=== PATIENT | male | born 1950 | race Caucasian/White ===

== ENCOUNTER 2016-12-20 18:29 | Inpatient (IN) | payer MEDICARE, OTHER ==
--- NOTE | 2016-12-20 19:40 | EDM.PDOC ---
ED HPI GENERAL MEDICAL PROBLEM - General Chief Complaint: Abdominal Pain Stated Complaint: ABD PAIN Time Seen by Provider: 12/20/16 19:20 Source of Information: Reports: Patient History Limitations: Reports: No Limitations - History of Present Illness INITIAL COMMENTS - FREE TEXT/NARRATIVE: Carlyle presents today with complaints of aching abdominal pain that starts at the pubis and radiates across entire lower abdomen. He reports taking miralax with minimal results. He denies ribbon like, or small round stools. He denies fevers or chills. Carlyle states this pain is not similar to the pain he has had in the past with kidney stones. Onset: Today, Sudden Onset Date: 12/20/16 Duration: Hour(s): Quality: Reports: Ache Severity: Moderate Improves with: Reports: None Worsens with: Reports: Movement Lower Abdominal Pain Score (Numeric/FACES): 6 - Related Data Allergies Allergy/AdvReac Type Severity Reaction Status Date / Time No Known Allergies Allergy Verified 12/20/16 19:01 Home Meds: Home Meds Allopurinol [Zyloprim] 300 mg PO DAILY 06/12/13 [History] Gemfibrozil [Gemfibrozil] 600 mg PO DAILY 12/20/16 [History] Past Medical History HEENT History: Reports: Cataract, Impaired Vision Cardiovascular History: Reports: Heart Murmur, High Cholesterol Genitourinary History: Reports: Renal Calculus Musculoskeletal History: Reports: Fracture - Past Surgical History HEENT Surgical History: Reports: Oral Surgery Male Surgical History: Reports: Renal Calculus, Other (See Below) Other Male Surgeries/Procedures: renal stent Social & Family History - Tobacco Use Smoking Status *Q: Never Smoker Second Hand Smoke Exposure: No - Caffeine Use Caffeine Use: Reports: Soda - Alcohol Use Days Per Week of Alcohol Use: 0 - Recreational Drug Use Recreational Drug Use: No ED ROS GENERAL - Review of Systems Review Of Systems: See Below Constitutional: Denies: Fever, Chills, Malaise, Weight Gain HEENT: Reports: No Symptoms Respiratory: Denies: Shortness of Breath, Wheezing, Pleuritic Chest Pain, Cough , Sputum, Hemoptysis Cardiovascular: Denies: Chest Pain, Blood Pressure Problem, Dyspnea on Exertion , Edema, Lightheadedness, Palpitations, PND, Syncope Endocrine: Reports: No Symptoms GI/Abdominal: Reports: Abdominal Pain, Constipation, Flatus, Other (Last colonoscopy 5 years ago, he reports no concerns. ). Denies: Anorexia, Black Stool, Bloody Stool, Diarrhea, Hematemesis, Hematochezia, Nausea, Vomiting : Reports: Pain, Other (Pain over pubis, he reports no hisory of abnormal PSA. ). Denies: Discharge, Dysuria, Flank Pain, Frequency, Incontinence, Urgency, Urinary Retention Musculoskeletal: Reports: No Symptoms Skin: Denies: Diaphoresis, Bruising, Pruritis, Rash, Erythema, Wound, Lesions Neurological: Denies: Confusion, Dizziness, Headache Psychiatric: Reports: No Symptoms Hematologic/Lymphatic: Reports: No Symptoms Immunologic: Reports: No Symptoms ED EXAM, GI/ABD - Physical Exam Exam: See Below Text/Narrative:: Carlyle is a 66 year old male with complaints of low pubic pain radiating across entire lower abdomen. He denies bilateral flank pain or back pain. He denies pain or difficulty with urination as well as fever or chills. Exam Limited By: No Limitations General Appearance: Alert, WD/WN, No Apparent Distress Eyes: Bilateral: Normal Appearance, EOMI Ears: Normal External Exam, Normal TMs Nose: Normal Inspection, Normal Mucosa, No Blood Throat/Mouth: Normal Inspection, Normal Lips, Normal Oropharynx, Normal Voice, No Airway Compromise Head: Atraumatic, Normocephalic Neck: Normal Inspection, Supple, Non-Tender, Full Range of Motion. No: Lymphadenopathy (R), Lymphadenopathy (L) Respiratory/Chest: No Respiratory Distress, Lungs Clear, Normal Breath Sounds, No Accessory Muscle Use, Chest Non-Tender Cardiovascular: Normal Peripheral Pulses, Regular Rate, Rhythm, No Edema, No Gallop, No Murmur GI/Abdominal: Hypoactive Bowel Sounds, Tenderness, Distention, Guarding, Other ( Difficult to assess/palpate abdomen due to patient sensitivity and guarding. ) (Male) Exam: No Hernia, Normal Inspection Back Exam: Normal Inspection, Full Range of Motion. No: CVA Tenderness (R), CVA Tenderness (L) Extremities: Normal Inspection, Normal Range of Motion, Non-Tender, No Pedal Edema, Normal Capillary Refill Neurological: Alert, Oriented, CN II-XII Intact, Normal Cognition, Normal Gait, No Motor/Sensory Deficits Psychiatric: Normal Affect, Normal Mood Skin Exam: Warm, Dry, Intact, Normal Color, No Rash Lymphatic: No Adenopathy Course - Vital Signs Last Recorded V/S: Last Vital Signs Temp 37.4 C 12/20/16 21:15 Pulse 70 12/20/16 23:40 Resp 16 12/20/16 23:40 BP 141/89 H 12/20/16 23:40 Pulse Ox 95 12/20/16 23:40 - Orders/Labs/Meds Orders: Active Orders 24 hr Category Date Time Status Admission Status [Patient Status] [ADT] Routine ADT 12/20/16 23:38 Active Abdomen Pelvis w Cont [CT] Stat Exams 12/20/16 20:30 Taken HELICOBACTER PYLORI AG, STOOL [REF] Urgent Lab 12/20/16 22:42 Uncollected Iopamidol [Isovue-300 (61%)] Med 12/20/16 21:00 Active 146 ml IV . DIRECTED Sodium Chloride 0.9% [Normal Saline] 80 ml Med 12/20/16 21:00 Active IV ASDIRECTED Sodium Chloride 0.9% [Saline Flush] Med 12/20/16 20:32 Active 10 ml FLUSH ASDIRECTED PRN Sodium Chloride 0.9% [Saline Flush] Med 12/20/16 20:53 Active 10 ml FLUSH ASDIRECTED PRN Saline Lock Insert [OM.PC] Routine Oth 12/20/16 20:32 Ordered Medication Orders Sodium Chloride (Normal Saline) 80 mls @ 3 mls/sec IV ASDIRECTED SONY Last Admin: 12/20/16 21:46 Dose: 3 mls/sec Iopamidol (Isovue-300 (61%)) 146 ml IV . DIRECTED SONY Last Admin: 12/20/16 21:46 Dose: 146 ml Sodium Chloride (Saline Flush) 10 ml FLUSH ASDIRECTED PRN PRN Reason: Keep Vein Open Last Admin: 12/20/16 21:46 Dose: 10 ml Admin: 12/20/16 21:14 Dose: 10 ml Sodium Chloride (Saline Flush) 10 ml FLUSH ASDIRECTED PRN PRN Reason: Keep Vein Open Labs: Laboratory Tests 12/20/16 12/20/16 12/20/16 Range/Units 19:45 19:45 20:09 WBC 13.0 H (4.5-11.0) K/uL RBC 5.32 (4.30-5.90) M/uL Hgb 15.4 H (12.0-15.0) g/dL Hct 45.7 (40.0-54.0) % MCV 86 (80-98) fL MCH 29 (27-31) pg MCHC 34 (32-36) % Plt Count 203 (150-400) K/uL Neut % (Auto) 80 H (36-66) % Lymph % (Auto) 11 L (24-44) % [place] % (Auto) 8 H (2-6) % Eos % (Auto) 1 L (2-4) % Baso % (Auto) 0 (0-1) % Sodium 138 L (140-148) mmol/L Potassium 3.7 (3.6-5.2) mmol/L Chloride 102 (100-108) mmol/L Carbon Dioxide 26 (21-32) mmol/L Anion Gap 13.7 (5.0-14.0) mmol/L BUN 14 (7-18) mg/dL Creatinine 1.4 H (0.8-1.3) mg/dL Est Cr Clr Drug Dosing 50.21 mL/min Estimated GFR (MDRD) 51 L (>60) Glucose 117 H (74-106) mg/dL Calcium 8.6 (8.5-10.1) mg/dL Total Bilirubin 0.6 (0.2-1.0) mg/dL AST 22 (15-37) U/L ALT 20 (12-78) U/L Alkaline Phosphatase 77 (46-116) U/L C-Reactive Protein (0.0-0.3) mg/dL Total Protein 8.2 (6.4-8.2) g/dL Albumin 3.6 (3.4-5.0) g/dL Globulin 4.6 H (2.3-3.5) g/dL Albumin/Globulin Ratio 0.8 L (1.2-2.2) Amylase (25-115) U/L Lipase (73-393) U/L TSH, Ultra Sensitive 0.997 (0.358-3.740) uIU/mL Urine Color Yellow Urine Appearance Clear Urine pH 5.0 (4.5-8.0) Ur Specific [place] 1.020 (1.008-1.030) Urine Protein Negative (NEGATIVE) mg/dL Urine Glucose (UA) Normal (NEGATIVE) mg/dL Urine Ketones Negative (NEGATIVE) mg/dL Urine Occult Blood Negative (NEGATIVE) Urine Nitrite Negative (NEGAITVE) Urine Bilirubin Negative (NEGATIVE) Urine Urobilinogen Normal (NORMAL) mg/dL Ur Leukocyte Esterase Negative (NEGATIVE) Urine RBC 0-5 (0-5) Urine WBC Not seen (0-5) Ur Epithelial Cells Rare Amorphous Sediment Not seen Urine Bacteria Few Urine Mucus Few 12/20/16 12/20/16 Range/Units 22:00 22:00 WBC (4.5-11.0) K/uL RBC (4.30-5.90) M/uL Hgb (12.0-15.0) g/dL Hct (40.0-54.0) % MCV (80-98) fL MCH (27-31) pg MCHC (32-36) % Plt Count (150-400) K/uL Neut % (Auto) (36-66) % Lymph % (Auto) (24-44) % [place] % (Auto) (2-6) % Eos % (Auto) (2-4) % Baso % (Auto) (0-1) % Sodium (140-148) mmol/L Potassium (3.6-5.2) mmol/L Chloride (100-108) mmol/L Carbon Dioxide (21-32) mmol/L Anion Gap (5.0-14.0) mmol/L BUN (7-18) mg/dL Creatinine (0.8-1.3) mg/dL Est Cr Clr Drug Dosing mL/min Estimated GFR (MDRD) (>60) Glucose (74-106) mg/dL Calcium (8.5-10.1) mg/dL Total Bilirubin (0.2-1.0) mg/dL AST (15-37) U/L ALT (12-78) U/L Alkaline Phosphatase (46-116) U/L C-Reactive Protein 1.99 H (0.0-0.3) mg/dL Total Protein (6.4-8.2) g/dL Albumin (3.4-5.0) g/dL Globulin (2.3-3.5) g/dL Albumin/Globulin Ratio (1.2-2.2) Amylase 355 H (25-115) U/L Lipase 2695 H (73-393) U/L TSH, Ultra Sensitive (0.358-3.740) uIU/mL Urine Color Urine Appearance Urine pH (4.5-8.0) Ur Specific [place] (1.008-1.030) Urine Protein (NEGATIVE) mg/dL Urine Glucose (UA) (NEGATIVE) mg/dL Urine Ketones (NEGATIVE) mg/dL Urine Occult Blood (NEGATIVE) Urine Nitrite (NEGAITVE) Urine Bilirubin (NEGATIVE) Urine Urobilinogen (NORMAL) mg/dL Ur Leukocyte Esterase (NEGATIVE) Urine RBC (0-5) Urine WBC (0-5) Ur Epithelial Cells Amorphous Sediment Urine Bacteria Urine Mucus Lab work reviewed with Dr. Lu, patient and his , all questions answered. They are in agreement with plan. Meds: Medications Generic Name Dose Route Start Last Admin Trade Name Freq PRN Reason Stop Dose Admin Sodium Chloride 80 mls @ 3 mls/sec 12/20/16 21:00 12/20/16 21:46 Normal Saline IV 3 mls/sec ASDIRECTED SONY Administration Iopamidol 146 ml 12/20/16 21:00 12/20/16 21:46 Isovue-300 (61%) IV 146 ml . DIRECTED SONY Administration Sodium Chloride 10 ml 12/20/16 20:32 12/20/16 21:46 Saline Flush FLUSH 10 ml ASDIRECTED PRN Administration Keep Vein Open Sodium Chloride 10 ml 12/20/16 20:53 Saline Flush FLUSH ASDIRECTED PRN Keep Vein Open Discontinued Medications Generic Name Dose Route Start Last Admin Trade Name Freq PRN Reason Stop Dose Admin Hydromorphone HCl 0.5 mg 12/20/16 21:23 12/20/16 21:36 Dilaudid IVPUSH 12/20/16 21:24 0.5 mg ONETIME ONE Administration Hydromorphone HCl 0.5 mg 12/20/16 22:54 12/20/16 23:04 Dilaudid IVPUSH 12/20/16 22:55 0.5 mg ONETIME ONE Administration Hydromorphone HCl 0.5 mg 12/20/16 23:26 12/20/16 23:36 Dilaudid IVPUSH 12/20/16 23:27 0.5 mg ONETIME ONE Administration Sodium Chloride 1,000 mls @ 999 mls/hr 12/20/16 21:23 12/20/16 21:33 Normal Saline IV 12/20/16 22:23 999 mls/hr .BOLUS ONE Administration Sodium Chloride 1,000 mls @ 999 mls/hr 12/20/16 22:55 12/20/16 23:02 Normal Saline IV 12/20/16 23:55 999 mls/hr .BOLUS ONE Administration Ondansetron HCl 4 mg 12/20/16 21:23 12/20/16 21:34 Zofran IVPUSH 12/20/16 21:24 4 mg ONETIME ONE Administration - Re-Assessments/Exams Free Text/Narrative Re-Assessment/Exam: 12/20/16 20:37 Reviewed lab work with patient. We will complete a CT abdomen/pelvis with contrast. 12/20/16 20:38 Patient reports he has a history of renal growth to his left kidney. 12/20/16 23:36 Patient case discussed with Dr. Lu and Dr. Antonio, he will be admitted for pain control, fluid management, pancreatitis, duodenitis. Departure - Departure Time of Disposition: 00:02 Disposition: Admitted As Inpatient 66 Condition: Fair Clinical Impression: Pancreatitis, Duodenitis - Discharge Information Forms: ED Department Discharge - My Orders Last 24 Hours: My Active Orders 12/20/16 20:30 Abdomen Pelvis w Cont [CT] Stat 12/20/16 20:32 Sodium Chloride 0.9% [Saline Flush] 10 ml FLUSH ASDIRECTED PRN Saline Lock Insert [OM.PC] Routine 12/20/16 20:53 Sodium Chloride 0.9% [Saline Flush] 10 ml FLUSH ASDIRECTED PRN 12/20/16 21:00 Iopamidol [Isovue-300 (61%)] 146 ml IV . DIRECTED Sodium Chloride 0.9% [Normal Saline] 80 ml IV ASDIRECTED 12/20/16 22:42 HELICOBACTER PYLORI AG, STOOL [REF] Urgent 12/20/16 23:38 Admission Status [Patient Status] [ADT] Routine - Assessment/Plan Last 24 Hours: My Active Orders 12/20/16 20:30 Abdomen Pelvis w Cont [CT] Stat 12/20/16 20:32 Sodium Chloride 0.9% [Saline Flush] 10 ml FLUSH ASDIRECTED PRN Saline Lock Insert [OM.PC] Routine 12/20/16 20:53 Sodium Chloride 0.9% [Saline Flush] 10 ml FLUSH ASDIRECTED PRN 12/20/16 21:00 Iopamidol [Isovue-300 (61%)] 146 ml IV . DIRECTED Sodium Chloride 0.9% [Normal Saline] 80 ml IV ASDIRECTED 12/20/16 22:42 HELICOBACTER PYLORI AG, STOOL [REF] Urgent 12/20/16 23:38 Admission Status [Patient Status] [ADT] Routine Assessment:: Acute Pancreatitis, duodenitis. Plan: Admit as observation for pain control and hydration on clear liquid diet.
[2016-12-20] MEDS ORDERED: Sodium Chloride 0.9% 10 ML Syringe FLUSH PRN (20:53)
[2016-12-20] MEDS ORDERED: Sodium Chloride 0.9% 80 ML IV SCH (21:00)
[2016-12-20] MEDS ORDERED: Iopamidol 612 MG/ML 150 ML Bottle IV SCH (21:00)
[2016-12-20] MEDS: Sodium Chloride 0.9% 10 ML Syringe FLUSH PRN ×2 (21:14→21:46)
[2016-12-20] MEDS ORDERED: Sodium Chloride 0.9% 1,000 ML IV ONE ×2 (21:23→22:55)
[2016-12-20] MEDS ORDERED: HYDROmorphone 0.5 MG/0.5 ML Syringe IVPUSH ONE ×3 (21:23→23:26)
[2016-12-20] MEDS ORDERED: Ondansetron 4 MG/2 ML SDV IVPUSH ONE (21:23)
[2016-12-21] MEDS ORDERED: Acetaminophen 325 MG Tab PO PRN (00:52)
[2016-12-21] MEDS ORDERED: Docusate Sodium 100 MG Cap PO PRN (00:54)
[2016-12-21] MEDS ORDERED: Magnesium Hydroxide 400 MG/5 ML Susp 30 ML Cup PO PRN (00:54)
[2016-12-21] MEDS ORDERED: Bisacodyl 10 MG Supp RECTAL PRN (00:55)
[2016-12-21] MEDS ORDERED: Ondansetron 4 MG/2 ML SDV IVPUSH PRN (00:56)
[2016-12-21] MEDS ORDERED: Naloxone 0.4 MG/ML SDV IVPUSH PRN (00:58)
[2016-12-21] MEDS ORDERED: HYDROmorphone/Normal Saline 15 MG/30 ML PCA IV PRN (00:58)
[2016-12-21] MEDS: Dextrose 5%-Lactated Ringers 1,000 ML IV SCH ×3 (01:55→13:13)
[2016-12-21] MEDS: Pantoprazole 40 MG Vial IV SCH (08:30)
[2016-12-21] MEDS ORDERED: Propofol 200 MG/20 ML SDV ONE (09:17)
[2016-12-21] MEDS ORDERED: Midazolam 1 MG/ML 2 ML SDV ONE (09:18)
[2016-12-21] MEDS ORDERED: fentaNYL 100 MCG/2 ML SDV ONE (09:18)
--- NOTE | 2016-12-21 09:46 | US ---
Abdomen Ltd INDICATION: r/o gallstones FINDINGS: Normal hepatic echotexture. No intra- or extrahepatic bile duct dilatation. The gallbladde r is normal. Negative sonographic Toth sign. Aorta and IVC are normal where visualized. Pancreas i s not well seen. Survey views of the right kidney are negative for hydronephrosis. IMPRESSION: Negative right upper quadrant ultrasound.
--- NOTE | 2016-12-21 14:31 | PCM.CONS ---
H&P History of Present Illness - General Date of Service: 12/21/16 Admit Problem/Dx: Admission Diagnosis/Problem Admission Diagnosis/Problem Acute pancreatitis Source of Information: Patient, RN Notes Reviewed History Limitations: Reports: No Limitations - History of Present Illness Initial Comments - Free Text/Narative: This patient is a 66-year-old gentleman who was admitted last night with abdominal pain secondary to pancreatitis. He's had no previous episodes of pancreatitis and denies significant alcohol intake. Evaluation thus far has been unremarkable as to the underlying etiology. Abdominal ultrasound showed no evidence of gallstones or biliary obstruction. He's been seen and evaluated by Dr. Antonio EGD performed today showed mild gastritis but no other significant abnormalities. His pain has improved significantly and lipase is improved mildly from admission. He was started on a clear liquid diet which he has tolerated without recurrence of symptoms. Lower Abdominal Pain Score (Numeric/FACES): 1 - Related Data Allergies/Adverse Reactions: Allergies Allergy/AdvReac Type Severity Reaction Status Date / Time No Known Allergies Allergy Verified 12/20/16 19:01 Home Medications: Home Meds Allopurinol [Zyloprim] 300 mg PO DAILY 06/12/13 [History] Gemfibrozil [Gemfibrozil] 600 mg PO DAILY 12/20/16 [History] Past Medical History HEENT History: Reports: Cataract, Impaired Vision Cardiovascular History: Reports: Heart Murmur, High Cholesterol Genitourinary History: Reports: Renal Calculus Musculoskeletal History: Reports: Fracture - Infectious Disease History Infectious Disease History: Reports: Chicken Pox, Measles - Past Surgical History HEENT Surgical History: Reports: Oral Surgery Male Surgical History: Reports: Renal Calculus, Other (See Below) Other Male Surgeries/Procedures: renal stent Social & Family History - Family History Family Medical History: Noncontributory - Tobacco Use Smoking Status *Q: Never Smoker Second Hand Smoke Exposure: No - Caffeine Use Caffeine Use: Reports: Soda - Alcohol Use Days Per Week of Alcohol Use: 1 Number of Drinks Per Day: 0 Total Drinks Per Week: 0 Date of Last Drink: 11/28/16 Time of Last Drink: 17:00 - Recreational Drug Use Recreational Drug Use: No H&P Review of Systems - Review of Systems: Review Of Systems: See Below General: Denies: Fever, Chills, Weakness Pulmonary: Reports: No Symptoms Cardiovascular: Reports: No Symptoms Gastrointestinal: Reports: Abdominal Pain, Decreased Appetite, Distension. Denies: Constipation, Diarrhea, Nausea, Vomiting Genitourinary: Reports: No Symptoms Musculoskeletal: Reports: No Symptoms Exam - Exam Exam: See Below - Vital Signs Vital Signs: Last Vital Signs Temp 100.1 F 12/21/16 13:06 Pulse 65 12/21/16 13:06 Resp 18 12/21/16 13:06 BP 124/76 12/21/16 13:06 Pulse Ox 91 L 12/21/16 14:22 Weight: 214 lb 14.4 oz - Exam Neck: Supple, Trachea Midline, +2 Carotid Pulse wo Bruit Lungs: Clear to Auscultation, Normal Respiratory Effort Cardiovascular: Regular Rate, Regular Rhythm, Normal S1, Normal S2. No: Systolic Murmur, Diastolic Murmur Abdomen: Soft, Distention, Tenderness, Hypoactive Bowel Sounds. No: Organomegaly, Peritoneal Signs, Guarding, Rigidity, Rebound Back Exam: Normal Inspection, Full Range of Motion, NT Extremities: 3, Normal Inspection, 10 Skin: Warm, Dry, Intact - Patient Data Lab Results Last 24 hrs: Laboratory Results - last 24 hr 12/21/16 12/21/16 12/21/16 Range/Units 04:30 04:32 04:32 WBC 10.8 (4.5-11.0) K/uL RBC 4.82 (4.30-5.90) M/uL Hgb 14.3 (12.0-15.0) g/dL Hct 42.4 (40.0-54.0) % MCV 88 (80-98) fL MCH 30 (27-31) pg MCHC 34 (32-36) % Plt Count 164 (150-400) K/uL Sodium 138 L (140-148) mmol/L Potassium 3.9 (3.6-5.2) mmol/L Chloride 104 (100-108) mmol/L Carbon Dioxide 26 (21-32) mmol/L Anion Gap 11.9 (5.0-14.0) mmol/L BUN 11 (7-18) mg/dL Creatinine 1.3 (0.8-1.3) mg/dL Est Cr Clr Drug Dosing 54.08 mL/min Estimated GFR (MDRD) 55 L (>60) Glucose 130 H (74-106) mg/dL Calcium 8.0 L (8.5-10.1) mg/dL Total Bilirubin 0.6 (0.2-1.0) mg/dL AST 19 (15-37) U/L ALT 17 (12-78) U/L Alkaline Phosphatase 69 (46-116) U/L Total Protein 7.3 (6.4-8.2) g/dL Albumin 3.0 L (3.4-5.0) g/dL Globulin 4.3 H (2.3-3.5) g/dL Albumin/Globulin Ratio 0.7 L (1.2-2.2) Triglycerides 125 (15-150) mg/dL Cholesterol 160 (0-200) mg/dL LDL Cholesterol Direct 113 H (0-100) mg/dL HDL Cholesterol 35 L (40-60) mg/dL Amylase 255 H (25-115) U/L Lipase 2060 H (73-393) U/L Result Diagrams: 12/21/16 04:32 12/21/16 04:32 Consult PN Assessment/Plan Procedures: Procedures TTE W/DOPPLER COMPLETE (07/08/14) Problem List Initiated/Reviewed/Updated: Yes My Orders last 24 hours: My Active Orders 12/21/16 14:20 Convert IV to Saline Lock [OM.PC] Routine Plan: ASSESSMENT AND RECOMMENDATIONS PANCREATITIS-specific etiology not apparent, no evidence of obstruction or gallstones, no history of significant alcohol use. Question possible medication effect gemfibrizole versus allopurinol versus idiopathic. -Continue to hold outpatient medications -Saline lock IV -Repeat lipase level in a.m. -Continue Protonix for gastritis noted on EGD -Pain and antiemetic therapy as needed Requesting Provider: ROXANA Date Consult Requested: 12/21/16 Reason for Consult: Pancreatitis Patient History Reviewed: Yes Notified Requestor: Yes
[2016-12-21] MEDS ORDERED: Sodium Chloride 0.9% 1,000 ML IV SCH (14:45)
[2016-12-22] MEDS: Pantoprazole 40 MG Vial IV SCH (09:12)
[2016-12-22] MEDS ORDERED: Magnesium Sulfate/Water 2 GM in Premix Bag 1 BAG IV SCH (14:00)
[2016-12-22] MEDS ORDERED: oxyCODONE 5 MG Tab PO PRN (14:37)
--- NOTE | 2016-12-22 14:43 | PCM.CONSN ---
- General Info Date of Service: 12/22/16 Functional Status: Reports: pain controlled, tolerating diet, ambulating - Review of Systems General: Reports: Weakness. Denies: Fever, Chills Pulmonary: Reports: no symptoms Cardiovascular: Reports: No Symptoms Gastrointestinal: Reports: No symptoms Systems Review Comment:: This patient has done very well over the past 24 hours, abdominal pain has resolved and he is had no further nausea or vomiting. Vital signs have been stable, he did have a mild temperature elevation during the night. Thus far he is tolerated a clear liquid diet and was converted to a full liquid diet this morning. Lipase level and white blood cell count are significantly improved. - Patient Data Vitals - most recent: Last Vital Signs Temp 97.7 F 12/22/16 12:16 Pulse 53 L 12/22/16 12:16 Resp 16 12/22/16 12:16 BP 125/77 12/22/16 12:16 Pulse Ox 93 L 12/22/16 13:07 Weight - most recent: 214 lb 14.4 oz I&O - last 24 hours: Intake & Output 12/21/16 12/22/16 12/22/16 22:59 06:59 14:59 Intake Total 1384 523 410 Output Total 450 700 Balance 934 523 -290 Lab Results last 24 hrs: Laboratory Results - last 24 hr 12/22/16 12/22/16 Range/Units 04:52 04:52 WBC 11.4 H (4.5-11.0) K/uL RBC 4.33 (4.30-5.90) M/uL Hgb 12.8 (12.0-15.0) g/dL Hct 38.6 L (40.0-54.0) % MCV 89 (80-98) fL MCH 30 (27-31) pg MCHC 33 (32-36) % Plt Count 158 (150-400) K/uL Sodium 135 L (140-148) mmol/L Potassium 3.8 (3.6-5.2) mmol/L Chloride 101 (100-108) mmol/L Carbon Dioxide 27 (21-32) mmol/L Anion Gap 10.8 (5.0-14.0) mmol/L BUN 11 (7-18) mg/dL Creatinine 1.3 (0.8-1.3) mg/dL Est Cr Clr Drug Dosing 54.28 mL/min Estimated GFR (MDRD) 55 L (>60) Glucose 89 (74-106) mg/dL Calcium 8.1 L (8.5-10.1) mg/dL Phosphorus 3.2 (2.5-4.9) mg/dL Magnesium 1.7 L (1.8-2.4) mg/dL Total Bilirubin 0.9 (0.2-1.0) mg/dL AST 12 L (15-37) U/L ALT 14 (12-78) U/L Alkaline Phosphatase 62 (46-116) U/L Total Protein 7.1 (6.4-8.2) g/dL Albumin 2.7 L (3.4-5.0) g/dL Globulin 4.4 H (2.3-3.5) g/dL Albumin/Globulin Ratio 0.6 L (1.2-2.2) Amylase 95 D (25-115) U/L Lipase 425 H (73-393) U/L Vasu Results last 24 hrs: Microbiology 12/21/16 09:50 CLOtest - Final Stomach NEGATIVE CLOTEST Med Orders - Current: Current Medications Acetaminophen (Tylenol) 650 mg PO Q4H PRN PRN Reason: Pain/Fever Bisacodyl (Dulcolax) 10 mg RECTAL DAILY PRN PRN Reason: Constipation Docusate Sodium (Colace) 100 mg PO DAILY PRN PRN Reason: Constipation Magnesium Hydroxide (Milk Of Magnesia) 30 ml PO BID PRN PRN Reason: Constipation Naloxone HCl (Narcan) 0.4 mg IVPUSH Q2M PRN PRN Reason: Respiratory Distress Ondansetron HCl (Zofran) 4 mg IVPUSH Q4H PRN PRN Reason: Nausea/Vomiting Oxycodone HCl (Oxycodone) 5 - 10 mg PO Q4H PRN PRN Reason: Pain Pantoprazole Sodium (Protonix) 40 mg PO DAILY [facility] Sodium Chloride (Saline Flush) 10 ml FLUSH ASDIRECTED PRN PRN Reason: Keep Vein Open Discontinued Medications Fentanyl (Sublimaze) Confirm Administered Dose 100 mcg .ROUTE .STK-MED ONE Stop: 12/21/16 09:19 Hydromorphone HCl (Dilaudid) 0.5 mg IVPUSH ONETIME ONE Stop: 12/20/16 21:24 Last Admin: 12/20/16 21:36 Dose: 0.5 mg Hydromorphone HCl (Dilaudid) 0.5 mg IVPUSH ONETIME ONE Stop: 12/20/16 22:55 Last Admin: 12/20/16 23:04 Dose: 0.5 mg Hydromorphone HCl (Dilaudid) 0.5 mg IVPUSH ONETIME ONE Stop: 12/20/16 23:27 Last Admin: 12/20/16 23:36 Dose: 0.5 mg Hydromorphone HCl (Dilaudid Retail Store Manager 15 Mg In Ns 30 Ml) 0 mg IV ASDIRECTED PRN; Protocol PRN Reason: Pain Last Admin: 12/21/16 01:56 Dose: 15 mg Sodium Chloride (Normal Saline) 80 mls @ 3 mls/sec IV ASDIRECTED SONY Last Admin: 12/20/16 21:46 Dose: 3 mls/sec Sodium Chloride (Normal Saline) 1,000 mls @ 999 mls/hr IV .BOLUS ONE Stop: 12/20/16 22:23 Last Admin: 12/20/16 21:33 Dose: 999 mls/hr Sodium Chloride (Normal Saline) 1,000 mls @ 999 mls/hr IV .BOLUS ONE Stop: 12/20/16 23:55 Last Admin: 12/20/16 23:02 Dose: 999 mls/hr Dextrose/Lactated Ringer's (Dextrose 5%-Lactated Ringers) 1,000 mls @ 125 mls/ hr IV ASDIRECTED SONY Last Admin: 12/21/16 13:13 Dose: 125 mls/hr Sodium Chloride (Normal Saline) 1,000 mls @ 0 mls/hr IV ASDIRECTED SONY PRN Reason: KVO Stop: 12/25/16 14:34 Magnesium Sulfate 2 gm/ Premix 50 mls @ 25 mls/hr IV Q6H SONY Stop: 12/25/16 09:59 Last Admin: 12/22/16 14:18 Dose: 25 mls/hr Iopamidol (Isovue-300 (61%)) 146 ml IV . DIRECTED SONY Last Admin: 12/20/16 21:46 Dose: 146 ml Midazolam HCl (Versed 1 Mg/Ml) Confirm Administered Dose 2 mg .ROUTE .STK-MED ONE Stop: 12/21/16 09:19 Ondansetron HCl (Zofran) 4 mg IVPUSH ONETIME ONE Stop: 12/20/16 21:24 Last Admin: 12/20/16 21:34 Dose: 4 mg Pantoprazole Sodium (Protonix Iv) 40 mg IV Q24H SONY Last Admin: 12/22/16 09:12 Dose: 40 mg Propofol (Diprivan 20 Ml) Confirm Administered Dose 200 mg .ROUTE .STK-MED ONE Stop: 12/21/16 09:18 Sodium Chloride (Saline Flush) 10 ml FLUSH ASDIRECTED PRN PRN Reason: Keep Vein Open Last Admin: 12/20/16 21:46 Dose: 10 ml - Exam Quality Assessment: DVT prophylaxis General: alert, oriented, cooperative, no acute distress Lungs: Clear to auscultation, Normal respiratory effort Cardiovascular: Regular Rate, Regular Rhythm, No Murmurs Abdomen: bowel sounds present, soft, no tenderness, no distension Extremities: no edema Skin: warm, dry, intact Consult PN Assessment/Plan Procedures: Procedures TTE W/DOPPLER COMPLETE (07/08/14) Problem List Initiated/Reviewed/Updated: Yes My Orders last 24 hours: My Active Orders 12/22/16 14:36 Convert IV to Saline Lock [OM.PC] Routine 12/22/16 14:37 oxyCODONE 5 - 10 mg PO Q4H PRN 12/22/16 14:40 Magnesium Sulfate/Water [Magnesium Sulfate 2 GM in Water 50 ML] 2 gm Premix Bag 1 bag IV Q6H 12/22/16 Dinner Regular Diet [DIET] 12/23/16 05:00 CBC WITH AUTO DIFF [HEME] Timed MAGNESIUM [CHEM] Timed 12/23/16 09:00 Pantoprazole [ProTONIX] 40 mg PO DAILY Plan: ASSESSMENT AND RECOMMENDATIONS PANCREATITIS-specific etiology not apparent, no evidence of obstruction or gallstones, no history of significant alcohol use. Question possible medication effect gemfibrizole versus allopurinol versus idiopathic. -Continue to hold gemfibrozil -Resume therapy with allopurinol -Advance to regular diet -Saline lock IV -Repeat lipase level in a.m. -Continue Protonix for gastritis noted on EGD -Pain and antiemetic therapy as needed
[2016-12-22] MEDS: Allopurinol 300 MG Tab PO SCH (16:11)
--- NOTE | 2016-12-22 17:43 | PCM.CONSN ---
- General Info Date of Service: 12/22/16 Functional Status: Reports: pain controlled, tolerating diet - Review of Systems General: Reports: Weakness, Fatigue HEENT: Reports: no symptoms Pulmonary: Reports: no symptoms Cardiovascular: Reports: No Symptoms Gastrointestinal: Reports: Abdominal pain (improved) Genitourinary: Reports: no symptoms Musculoskeletal: Reports: no symptoms Skin: Reports: no symptoms Neurological: Reports: No Symptoms Psychiatric: Reports: no symptoms - Patient Data Vitals - most recent: Last Vital Signs Temp 97.9 F 12/22/16 16:45 Pulse 61 12/22/16 16:45 Resp 18 12/22/16 16:45 BP 139/65 12/22/16 16:45 Pulse Ox 95 12/22/16 16:45 Weight - most recent: 214 lb 14.4 oz I&O - last 24 hours: Intake & Output 12/22/16 12/22/16 12/22/16 06:59 14:59 22:59 Intake Total 523 410 118 Output Total 700 Balance 523 -290 118 Lab Results last 24 hrs: Laboratory Results - last 24 hr 12/22/16 12/22/16 Range/Units 04:52 04:52 WBC 11.4 H (4.5-11.0) K/uL RBC 4.33 (4.30-5.90) M/uL Hgb 12.8 (12.0-15.0) g/dL Hct 38.6 L (40.0-54.0) % MCV 89 (80-98) fL MCH 30 (27-31) pg MCHC 33 (32-36) % Plt Count 158 (150-400) K/uL Sodium 135 L (140-148) mmol/L Potassium 3.8 (3.6-5.2) mmol/L Chloride 101 (100-108) mmol/L Carbon Dioxide 27 (21-32) mmol/L Anion Gap 10.8 (5.0-14.0) mmol/L BUN 11 (7-18) mg/dL Creatinine 1.3 (0.8-1.3) mg/dL Est Cr Clr Drug Dosing 54.28 mL/min Estimated GFR (MDRD) 55 L (>60) Glucose 89 (74-106) mg/dL Calcium 8.1 L (8.5-10.1) mg/dL Phosphorus 3.2 (2.5-4.9) mg/dL Magnesium 1.7 L (1.8-2.4) mg/dL Total Bilirubin 0.9 (0.2-1.0) mg/dL AST 12 L (15-37) U/L ALT 14 (12-78) U/L Alkaline Phosphatase 62 (46-116) U/L Total Protein 7.1 (6.4-8.2) g/dL Albumin 2.7 L (3.4-5.0) g/dL Globulin 4.4 H (2.3-3.5) g/dL Albumin/Globulin Ratio 0.6 L (1.2-2.2) Amylase 95 D (25-115) U/L Lipase 425 H (73-393) U/L Vasu Results last 24 hrs: Microbiology 12/21/16 09:50 CLOtest - Final Stomach NEGATIVE CLOTEST Med Orders - Current: Current Medications Acetaminophen (Tylenol) 650 mg PO Q4H PRN PRN Reason: Pain/Fever Allopurinol (Zyloprim) 300 mg PO DAILY [facility] Last Admin: 12/22/16 16:11 Dose: 300 mg Bisacodyl (Dulcolax) 10 mg RECTAL DAILY PRN PRN Reason: Constipation Docusate Sodium (Colace) 100 mg PO DAILY PRN PRN Reason: Constipation Magnesium Sulfate 2 gm/ Premix 50 mls @ 25 mls/hr IV ONETIME ONE Stop: 12/22/16 21:59 Magnesium Hydroxide (Milk Of Magnesia) 30 ml PO BID PRN PRN Reason: Constipation Melatonin (Melatonin) 9 mg PO BEDTIME [facility] Naloxone HCl (Narcan) 0.4 mg IVPUSH Q2M PRN PRN Reason: Respiratory Distress Ondansetron HCl (Zofran) 4 mg IVPUSH Q4H PRN PRN Reason: Nausea/Vomiting Oxycodone HCl (Oxycodone) 5 - 10 mg PO Q4H PRN PRN Reason: Pain Pantoprazole Sodium (Protonix) 40 mg PO DAILY@0730 [facility] Sodium Chloride (Saline Flush) 10 ml FLUSH ASDIRECTED PRN PRN Reason: Keep Vein Open Discontinued Medications Fentanyl (Sublimaze) Confirm Administered Dose 100 mcg .ROUTE .STK-MED ONE Stop: 12/21/16 09:19 Hydromorphone HCl (Dilaudid) 0.5 mg IVPUSH ONETIME ONE Stop: 12/20/16 21:24 Last Admin: 12/20/16 21:36 Dose: 0.5 mg Hydromorphone HCl (Dilaudid) 0.5 mg IVPUSH ONETIME ONE Stop: 12/20/16 22:55 Last Admin: 12/20/16 23:04 Dose: 0.5 mg Hydromorphone HCl (Dilaudid) 0.5 mg IVPUSH ONETIME ONE Stop: 12/20/16 23:27 Last Admin: 12/20/16 23:36 Dose: 0.5 mg Hydromorphone HCl (Dilaudid Veterinary Physiologist 15 Mg In Ns 30 Ml) 0 mg IV ASDIRECTED PRN; Protocol PRN Reason: Pain Last Admin: 12/21/16 01:56 Dose: 15 mg Sodium Chloride (Normal Saline) 80 mls @ 3 mls/sec IV ASDIRECTED SONY Last Admin: 12/20/16 21:46 Dose: 3 mls/sec Sodium Chloride (Normal Saline) 1,000 mls @ 999 mls/hr IV .BOLUS ONE Stop: 12/20/16 22:23 Last Admin: 12/20/16 21:33 Dose: 999 mls/hr Sodium Chloride (Normal Saline) 1,000 mls @ 999 mls/hr IV .BOLUS ONE Stop: 12/20/16 23:55 Last Admin: 12/20/16 23:02 Dose: 999 mls/hr Dextrose/Lactated Ringer's (Dextrose 5%-Lactated Ringers) 1,000 mls @ 125 mls/ hr IV ASDIRECTED SONY Last Admin: 12/21/16 13:13 Dose: 125 mls/hr Sodium Chloride (Normal Saline) 1,000 mls @ 0 mls/hr IV ASDIRECTED SONY PRN Reason: KVO Stop: 12/25/16 14:34 Magnesium Sulfate 2 gm/ Premix 50 mls @ 25 mls/hr IV Q6H [facility]ONY Stop: 12/25/16 09:59 Last Admin: 12/22/16 14:18 Dose: 25 mls/hr Iopamidol (Isovue-300 (61%)) 146 ml IV . DIRECTED SONY Last Admin: 12/20/16 21:46 Dose: 146 ml Midazolam HCl (Versed 1 Mg/Ml) Confirm Administered Dose 2 mg .ROUTE .STK-MED ONE Stop: 12/21/16 09:19 Ondansetron HCl (Zofran) 4 mg IVPUSH ONETIME ONE Stop: 12/20/16 21:24 Last Admin: 12/20/16 21:34 Dose: 4 mg Pantoprazole Sodium (Protonix Iv) 40 mg IV Q24H SONY Last Admin: 12/22/16 09:12 Dose: 40 mg Propofol (Diprivan 20 Ml) Confirm Administered Dose 200 mg .ROUTE .STK-MED ONE Stop: 12/21/16 09:18 Sodium Chloride (Saline Flush) 10 ml FLUSH ASDIRECTED PRN PRN Reason: Keep Vein Open Last Admin: 12/20/16 21:46 Dose: 10 ml - Exam Quality Assessment: DVT prophylaxis General: alert, oriented, cooperative, no acute distress HEENT: Pupils equal, Pupils reactive Neck: supple Lungs: Clear to auscultation, Normal respiratory effort Cardiovascular: Regular Rate, Regular Rhythm Abdomen: tenderness (minimal in the upper abdominal quadrants) (Male) Exam: Deferred Back Exam: Normal Inspection, Full Range of Motion Extremities: no edema Consult PN Assessment/Plan POD#: 0 Procedures: Procedures TTE W/DOPPLER COMPLETE (07/08/14) (1) Pancreatitis SNOMED Code(s): 65680060 Code(s): K85.90 - ACUTE PANCREATITIS WITHOUT NECROSIS OR INFECTION, UNSP Current Visit: Yes (2) Duodenitis SNOMED Code(s): 19204438 Code(s): K29.80 - DUODENITIS WITHOUT BLEEDING Current Visit: Yes Problem List Initiated/Reviewed/Updated: Yes My Orders last 24 hours: My Active Orders 12/23/16 04:00 AMYLASE [CHEM] Routine COMPREHENSIVE METABOLIC PN,CMP [CHEM] Timed LIPASE [CHEM] Routine MAGNESIUM [CHEM] Timed PHOSPHORUS [CHEM] Timed Full Liquid Diet Will evaluate prn or in AM Mandi Osborn
[2016-12-22] MEDS ORDERED: Magnesium Sulfate/Water 2 GM in Premix Bag 1 BAG IV ONE (20:00)
[2016-12-22] MEDS ORDERED: Melatonin 3 MG Tab PO SCH (21:00)
[2016-12-23] MEDS ORDERED: Haloperidol Lactate 5 MG/ML SDV IVPUSH STA (02:52)
[2016-12-23] MEDS ORDERED: Haloperidol Lactate 5 MG/ML SDV IVPUSH PRN (02:54)
[2016-12-23] MEDS ORDERED: Pantoprazole 40 MG Tab.CR PO SCH (07:30)
[2016-12-23] MEDS: Allopurinol 300 MG Tab PO SCH (08:26)
--- NOTE | 2016-12-23 08:56 | PN ---
DATE OF SERVICE: 12/21/2016 The patient has been afebrile with stable vital signs overnight. The abdominal pain is relatively minimal, and at this point, we will complete his workup with ultrasound of the abdomen and lipid profile. He does not have history of steroid use or significant alcohol use, and his calcium is in the low normal range, given his albumin level. The radiologist noted that there was quite a bit of a focus of inflammation in the pancreatic head, suggestive of the possibility that this is related to duodenal inflammation/ulcer, and given this, we will proceed with an upper endoscopy today and recheck some labs tomorrow. We will start some Protonix as well as. I have asked Dr. Samuel to see the patient for any additional input. Franc Antonio MD /[id number]
[2016-12-23 08:59] VITALS: BP 139/83
--- NOTE | 2016-12-24 03:35 | DISCH ---
ADMISSION DIAGNOSES: 1. Abdominal pain. 2. Hypercholesterolemia. 3. History of heart murmur. 4. History of renal calculus. 5. Abnormal prostate-specific antigen. DISCHARGE DIAGNOSES: 1. Status post esophagogastroduodenoscopy, 12/21/2016. 2. Idiopathic pancreatitis. HISTORY: Carlyle Ruby was admitted on 12/20/2016 from the emergency department with less than 24-hour history of abdominal pain that started in the lower part of his abdomen and radiated throughout his entire abdomen. At time of admission, his white count was 13. C- reactive protein was 1.99, amylase 355, and lipase 2695. He was admitted for hydration and to work up his pancreatitis. HOSPITAL COURSE: Carlyle was admitted on 12/20/2016. He had an EGD on 12/21/2016, which was nonconclusive. Ultrasound showed no evidence of gallstones or biliary obstruction. He has no history of alcohol intake. Medications were evaluated. Gemfibrozil was discontinued with a question of that causing his pancreatitis. Pain was controlled. His activity was good. At time of discharge, on 12/23/2016, his amylase was 64 and lipase 381. Carlyle will be discharged to home on 12/23/2016 without any complications. On 12/22/2016, he developed hiccups, which did not go away after 24 hours, so he was started on Haldol and this seemed to help with the hiccups. PHYSICAL EXAMINATION: GENERAL: Carlyle Ruby is a 66-year-old male. VITAL SIGNS: Height is 5 feet 8.11 inches, weight 214 pounds. TPR 97.1, 63, 18, and blood pressure 139/83. HEENT: Negative. NECK: Supple. HEART: Regular rate and rhythm. LUNGS: Clear. ABDOMEN: Soft. Very mildly tender. EXTREMITIES: Without peripheral edema. DISPOSITION: Discharged to home. CONDITION: Stable and improving. FOLLOWUP APPOINTMENT: With Rory Gates MD in 1 week for followup. DISCHARGE MEDICATIONS: Medications were to be resumed with addition of Haldol 0.5 mg q.4 hours p.r.n. hiccuping. DIET: Usual diet as tolerated. ACTIVITY: As tolerated. DISCHARGE INSTRUCTIONS: Drink 8 to 10 glasses of water a day. Notify provider if any fever, increased pain, nausea, or vomiting.
--- NOTE | 2016-12-31 17:42 | OR ---
DATE OF PROCEDURE: 12/21/2016 PREOPERATIVE DIAGNOSIS: Upper abdominal pain associated with pancreatitis with adjacent duodenal inflammation. POSTOPERATIVE DIAGNOSIS: Mild antral gastritis (not likely to cause pancreatitis). OPERATIVE PROCEDURE: Esophagogastroduodenoscopy with biopsies of antrum for CLOtest. ANESTHESIA: IV sedation. INDICATION FOR PROCEDURE: This is a 66-year-old male admitted overnight with pancreatitis. As part of the workup, he had underwent CT scan which showed inflammation in the antrum and duodenum suggesting possibility that there might be something like a penetrating ulcer in that area causing pancreatitis. Plan is to proceed with upper GI endoscopy with biopsies as indicated to investigate that issue. Potential risks including bleeding and perforation were discussed, and the patient wishes to proceed. PROCEDURE IN DETAILS: The patient was taken to the operating room and placed in a left lateral decubitus position. IV sedation was administered, after which the upper GI endoscope was passed orally through the length of the esophagus and into the stomach with retroflexion in view of the fundus, thereafter through the pyloric channel and into the proximal duodenum. FINDINGS: Included normal esophagus and EG junction as one passed in the stomach, there was a small amount of retained bile. Proximal stomach was unremarkable. There was quite mild antral gastritis, which was somewhat patchy in distribution and there were no erosions or ulcers seen. Pyloric channel and the duodenum to the junction of the third and fourth portions were showing some very mild duodenitis, but again nothing in terms of ulceration or erosions, but at this point biopsies were obtained from the antrum and sent for CLOtest for H. pylori. Minimal bleeding from the biopsy site was seen and the procedure was then concluded with withdrawal of the scope. Overall findings would not support the inflammation and antrum or duodenum causing the pancreatitis. Franc Antonio MD /[id number]
== END 2016-12-23 11:45 | disposition home or self-care (01) | DRG 440 ==
LOC: JP.ED 18:29 → UNDOADMIN 23:38 → JP.MS 23:38 → UNDODISIN 12-23 11:45
PROVIDERS: ADMIT Surgery; ATTEND Surgery
PROC: 0DB68ZX Excision of Stomach, Via Natural or Artificial Opening Endoscopic, Diagnostic (ICD-10-PCS; principal; 2016-12-21)
DX: K85.00 Idiopathic acute pancreatitis without necrosis or infection (principal); K29.60 Other gastritis without bleeding; K29.80 Duodenitis without bleeding; R10.9 Unspecified abdominal pain; E78.00 Pure hypercholesterolemia, unspecified; H54.7 Unspecified visual loss; R06.6 Hiccough; Z87.442 Personal history of urinary calculi; R97.20 Elevated prostate specific antigen [PSA]
CPT/HCPCS: 36415; 74177; 80053; 81001; 82150; 83690; 84443; 85025; 86140; 96361; 96374; 96375; 96376; 99285; J1170 ×3; J2405; J7030; J7040 ×2; J7050 ×2; 76705; 76705-26; 80061; 83735; 84100; 85027; 87081; 94762; A9270-GY; C9113; J1630; J2250; J2704; J3010; J3475; J7042

== ENCOUNTER 2019-06-09 14:54 | Emergency (ER) | payer MEDICARE, OTHER ==
--- NOTE | 2019-06-09 15:52 | EDM.PDOC ---
ED HPI GENERAL MEDICAL PROBLEM - General Chief Complaint: General Stated Complaint: DIZZY,VISION ISSUES,CLAMMY Time Seen by Provider: 06/09/19 15:30 Source of Information: Reports: Patient, Old Records History Limitations: Reports: No Limitations - History of Present Illness INITIAL COMMENTS - FREE TEXT/NARRATIVE: 68 yo male was walking across a room in his home when he almost passed out. He got light-headed, his vision got dimmer, and he got diaphoretic. He got to the cough and say down before passing out and after several minutes he gradually returned to normal. He did not have any CP or SOB. No nausea. He has not eaten today, but did have a Coke and some juice, and water. No diarrhea or bloody stools. No recent fever. No pleuritic chest pain or LE edema. He has never had this happen before. He was not aware of a rapid, slow, or irregular heart rhythm. No headache. No vertigo. Onset: Today Onset Date: 06/09/19 Duration: Minutes:, Resolved Prior to Arrival (resolved about the time he arrived.) Location: Reports: Head, Generalized Quality: Reports: Other (no reported pain) Severity: Moderate Improves with: Reports: Rest (sitting/lying) Worsens with: Reports: Other (? standing at the time.) Context: Reports: Other (See HPI) Associated Symptoms: Reports: Diaphoresis. Denies: Confusion, Chest Pain, Fever /Chills, Headaches, Nausea/Vomiting, Seizure, Shortness of Breath, Syncope Treatments MANAGER INTEGRITY: Reports: Other (see below) (rest) - Related Data Allergies Allergy/AdvReac Type Severity Reaction Status Date / Time No Known Allergies Allergy Verified 02/18/18 06:14 Home Meds: Home Meds allopurinoL [Zyloprim] 300 mg PO DAILY 06/12/13 [History] Losartan [Cozaar] 50 mg PO DAILY 06/09/19 [History] Rivaroxaban [Xarelto] 20 mg PO DAILY 06/09/19 [History] Past Medical History HEENT History: Reports: Cataract, Impaired Vision Cardiovascular History: Reports: Blood Clots/VTE/DVT, Heart Murmur, High Cholesterol Genitourinary History: Reports: Renal Calculus Musculoskeletal History: Reports: Fracture - Infectious Disease History Infectious Disease History: Reports: Chicken Pox, Measles - Past Surgical History HEENT Surgical History: Reports: Oral Surgery GI Surgical History: Reports: Hernia, Inguinal Male Surgical History: Reports: Renal Calculus, Other (See Below) Other Male Surgeries/Procedures: renal stent Social & Family History - Family History Family Medical History: Noncontributory - Tobacco Use Smoking Status *Q: Never Smoker - Caffeine Use Caffeine Use: Reports: Soda - Recreational Drug Use Recreational Drug Use: No ED ROS GENERAL - Review of Systems Review Of Systems: See Below Constitutional: Reports: Diaphoresis (now resolved) HEENT: Reports: No Symptoms Respiratory: Reports: No Symptoms Cardiovascular: Reports: Lightheadedness Endocrine: Reports: No Symptoms GI/Abdominal: Reports: No Symptoms : Reports: No Symptoms Musculoskeletal: Reports: No Symptoms Skin: Reports: Diaphoresis Neurological: Denies: Confusion, Dizziness, Headache, Numbness, Paresthesia, Seizure, Syncope, Trouble Speaking, Difficulty Walking, Weakness, Change in Speech, Gait Disturbance Psychiatric: Reports: No Symptoms ED EXAM, GENERAL - Physical Exam Exam: See Below Exam Limited By: No Limitations General Appearance: Alert, WD/WN, No Apparent Distress Eye Exam: Bilateral Eye: Normal Inspection, PERRL Ears: Normal External Exam, Normal Canal, Hearing Grossly Normal, Normal TMs Ear Exam: Bilateral Ear: Auricle Normal, Canal Normal, TM normal Nose: Normal Inspection, Normal Mucosa, No Blood Throat/Mouth: Normal Inspection, Normal Lips, Normal Oropharynx, Normal Voice, No Airway Compromise Head: Atraumatic, Normocephalic Neck: Normal Inspection Respiratory/Chest: No Respiratory Distress, Lungs Clear, Normal Breath Sounds, No Accessory Muscle Use Cardiovascular: Regular Rate, Rhythm, No Edema GI/Abdominal: Normal Bowel Sounds, Soft, Non-Tender, No Distention Back Exam: Normal Inspection. No: CVA Tenderness (R), CVA Tenderness (L) Extremities: Normal Inspection, Normal Range of Motion, Non-Tender, No Pedal Edema. No: Increased Warmth, Redness Neurological: Alert, Oriented, CN II-XII Intact, Normal Cognition, No Motor/ Sensory Deficits Psychiatric: Normal Affect, Normal Mood Skin Exam: Warm, Dry, Intact, Normal Color, No Rash Course - Vital Signs Last Recorded V/S: Last Vital Signs Temp 36.6 C 06/09/19 15:27 Pulse 68 06/09/19 15:27 Resp 17 06/09/19 15:27 BP 98/63 06/09/19 15:27 Pulse Ox 95 06/09/19 15:27 Orthostatic Blood Pressure [ 106/64 Standing] Orthostatic Blood Pressure [ 102/67 Sitting] Orthostatic Blood Pressure [ 96/61 Supine] - Orders/Labs/Meds Labs: Laboratory Tests 06/09/19 06/09/19 06/09/19 Range/Units 15:40 15:58 15:58 WBC 10.8 (4.5-11.0) K/uL RBC 5.25 (4.30-5.90) M/uL Hgb 15.1 H (12.0-15.0) g/dL Hct 46.7 (40.0-54.0) % MCV 89 (80-98) fL MCH 29 (27-31) pg MCHC 32 (32-36) % Plt Count 227 (150-400) K/uL Sodium 135 L (140-148) mmol/L Potassium 3.8 (3.6-5.2) mmol/L Chloride 100 (100-108) mmol/L Carbon Dioxide 25 (21-32) mmol/L Anion Gap 13.8 (5.0-14.0) mmol/L BUN 24 H (7-18) mg/dL Creatinine 1.8 H (0.8-1.3) mg/dL Est Cr Clr Drug Dosing 38.00 mL/min Estimated GFR (MDRD) 38 L (>60) Glucose 103 (74-106) mg/dL Calcium 8.7 (8.5-10.1) mg/dL Troponin I < 0.017 (0.000-0.056) ng/mL Urine Color [place] A (YELLOW) Urine Appearance Clear (CLEAR) Urine pH 5.5 (5.0-8.0) Ur Specific [place] >= 1.030 (1.008-1.030) Urine Protein 100 H (NEGATIVE) mg/dL Urine Glucose (UA) Negative (NEGATIVE) mg/dL Urine Ketones Negative (NEGATIVE) mg/dL Urine Occult Blood Negative (NEGATIVE) Urine Nitrite Negative (NEGATIVE) Urine Bilirubin Negative (NEGATIVE) Urine Urobilinogen 0.2 (0.2-1.0) EU/dL Ur Leukocyte Esterase Small H (NEGATIVE) Urine RBC 0-5 (0-5) Urine WBC 5-10 H (0-5) Ur Epithelial Cells Not seen Amorphous Sediment Many Urine Bacteria Not seen Urine Mucus Not seen Departure - Departure Time of Disposition: 16:50 Disposition: Home, Self-Care 01 Condition: Good Clinical Impression: Mild dehydration, Orthostatic hypotension - Discharge Information *PRESCRIPTION DRUG MONITORING PROGRAM REVIEWED*: No *COPY OF PRESCRIPTION DRUG MONITORING REPORT IN PATIENT RUTH: No Instructions: Dehydration, Adult, [id number] Referrals: PCP,None [Primary Care Provider] - Forms: ED Department Discharge Additional Instructions: Drink a sufficient amount of fluids daily to keep your urine light yellow in color. Recheck as needed. Sepsis Event Note - Evaluation Sepsis Screening Result: No Definite Risk - Focused Exam Vital Signs: Vital Signs Temp Pulse Resp BP Pulse Ox 06/09/19 15:27 36.6 C 68 17 98/63 95 06/09/19 15:11 36.6 C 68 17 98/63 95 Date Exam was Performed: 06/09/19 Time Exam was Performed: 16:50
[2019-06-09 16:57] VITALS: BP 112/71; PULSE 71
== END 2019-06-09 16:57 | disposition home or self-care (01) ==
LOC: JP.ED 14:54
DX: E86.0 Dehydration (principal); I95.1 Orthostatic hypotension; E78.00 Pure hypercholesterolemia, unspecified; Z79.899 Other long term (current) drug therapy; Z79.01 Long term (current) use of anticoagulants; Z86.718 Personal history of other venous thrombosis and embolism
CPT/HCPCS: 36415; 80048; 81001; 84484; 85027; 99283; 99284

== ENCOUNTER 2020-01-20 19:02 | Emergency (ER) | payer MEDICARE, OTHER ==
--- NOTE | 2020-01-20 19:39 | EDM.PDOC ---
ED HPI GENERAL MEDICAL PROBLEM - General Chief Complaint: General Stated Complaint: TROUBLE CATCHING BREATH Time Seen by Provider: 01/20/20 19:28 Source of Information: Reports: Patient, Family, RN Notes Reviewed History Limitations: Reports: No Limitations - History of Present Illness INITIAL COMMENTS - FREE TEXT/NARRATIVE: 69-year-old gentleman presents emergency department with a complaint of hiccups, he has had several bouts of sustained hiccups this last particular event is been going on for 6 days they will wax and wane he has had up to an hour relief he has tried Thorazine as well as metoclopramide without any relief. Hiccups will become so intense that he gets short of breath at times no chest pain no nausea vomiting no fever - Related Data Allergies Allergy/AdvReac Type Severity Reaction Status Date / Time No Known Allergies Allergy Verified 01/20/20 19:18 Home Meds: Home Meds allopurinoL [Zyloprim] 300 mg PO DAILY 06/12/13 [History] Losartan [Cozaar] 50 mg PO DAILY 06/09/19 [History] Rivaroxaban [Xarelto] 20 mg PO DAILY 06/09/19 [History] Metoclopramide HCl [Reglan] 1 tab PO Q6H PRN 01/20/20 [History] Past Medical History HEENT History: Reports: Cataract, Impaired Vision Cardiovascular History: Reports: Blood Clots/VTE/DVT, Heart Murmur, High Cholesterol Genitourinary History: Reports: Renal Calculus Musculoskeletal History: Reports: Arthritis, Back Pain, Chronic, Fracture, Other (See Below) Other Musculoskeletal History: chronic degenerative 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-5 - Infectious Disease History Infectious Disease History: Reports: Chicken Pox, Measles - Past Surgical History HEENT Surgical History: Reports: Oral Surgery GI Surgical History: Reports: Hernia, Inguinal Male Surgical History: Reports: Renal Calculus, Ureteral Stent, Other (See Below) Other Male Surgeries/Procedures: renal stent Social & Family History - Family History Family Medical History: Noncontributory - Tobacco Use Smoking Status *Q: Never Smoker - Caffeine Use Caffeine Use: Reports: Soda - Recreational Drug Use Recreational Drug Use: No ED ROS GENERAL - Review of Systems Review Of Systems: See Below Constitutional: Reports: No Symptoms HEENT: Reports: No Symptoms Respiratory: Reports: Shortness of Breath, Other (Hiccups) Cardiovascular: Reports: No Symptoms GI/Abdominal: Reports: No Symptoms ED EXAM, GENERAL - Physical Exam Exam: See Below Exam Limited By: No Limitations General Appearance: Alert, WD/WN, No Apparent Distress Neck: Normal Inspection, Supple, Non-Tender, Full Range of Motion Respiratory/Chest: No Respiratory Distress, Lungs Clear, Normal Breath Sounds, No Accessory Muscle Use, Chest Non-Tender Cardiovascular: Regular Rate, Rhythm, No Murmur GI/Abdominal: Soft, Non-Tender Course - Vital Signs Last Recorded V/S: Last Vital Signs Temp 97.3 F 01/20/20 19:21 Pulse 61 01/20/20 19:21 Resp 16 01/20/20 19:21 BP 142/80 H 01/20/20 19:21 Pulse Ox 97 01/20/20 19:21 - Orders/Labs/Meds Labs: Laboratory Tests 01/20/20 01/20/20 Range/Units 19:50 19:50 WBC 15.6 H (4.5-11.0) K/uL RBC 5.17 (4.30-5.90) M/uL Hgb 14.9 (12.0-15.0) g/dL Hct 45.8 (40.0-54.0) % MCV 89 (80-98) fL MCH 29 (27-31) pg MCHC 33 (32-36) % Plt Count 226 (150-400) K/uL Neut % (Auto) 81 H (36-66) % Lymph % (Auto) 11 L (24-44) % Wells % (Auto) 6 (2-6) % Eos % (Auto) 1 L (2-4) % Baso % (Auto) 0 (0-1) % Sodium 135 L (140-148) mmol/L Potassium 4.2 (3.6-5.2) mmol/L Chloride 102 (100-108) mmol/L Carbon Dioxide 26 (21-32) mmol/L Anion Gap 11.2 (5.0-14.0) mmol/L BUN 23 H (7-18) mg/dL Creatinine 1.4 H (0.8-1.3) mg/dL Est Cr Clr Drug Dosing 48.18 mL/min Estimated GFR (MDRD) 50 L (>60) Glucose 136 H (74-106) mg/dL Calcium 8.4 L (8.5-10.1) mg/dL Total Bilirubin 0.4 (0.2-1.0) mg/dL AST 34 (15-37) U/L ALT 43 (12-78) U/L Alkaline Phosphatase 84 (46-116) U/L Troponin I < 0.017 (0.000-0.056) ng/mL Total Protein 7.8 (6.4-8.2) g/dL Albumin 3.5 (3.4-5.0) g/dL Globulin 4.3 H (2.3-3.5) g/dL Albumin/Globulin Ratio 0.8 L (1.2-2.2) Lipase 481 H (73-393) U/L Departure - Departure Time of Disposition: 20:26 Disposition: Home, Self-Care 01 Condition: Fair Clinical Impression: Intractable hiccups - Discharge Information Referrals: Rory Gates MD [Primary Care Provider] - Forms: ED Department Discharge Additional Instructions: Please follow-up with your primary care in the next 3 to 5 days for further evaluation, consider phrenic nerve block under ultrasound guidance Sepsis Event Note (ED) - Evaluation Sepsis Screening Result: No Definite Risk - Focused Exam Vital Signs: Vital Signs Temp Pulse Resp BP Pulse Ox 01/20/20 19:21 97.3 F 61 16 142/80 H 97 01/20/20 19:13 97.3 F 61 16 142/80 H 97 - Assessment/Plan Plan: Assessment Acuity = acute Site and laterality = hiccups Etiology = unknown Manifestations = none Location of injury = Home Lab values = WBC elevated 15.6 consistent leukocytosis, creatinine slightly elevated 1.4 consistent chronic renal failure stage T3a troponin was negative lipase slightly elevated 481 of uncertain significance Plan He has tried both Thorazine and metoclopramide without success recommend follow- up with primary care consider phrenic nerve block This note was dictated using [employer] voice recognition software please call with any questions on syntax or grammar.
[2020-01-20 20:05] VITALS: BP 142/80; PULSE 61
== END 2020-01-20 20:32 | disposition home or self-care (01) ==
LOC: JP.ED 19:02
DX: R06.6 Hiccough (principal); M19.90 Unspecified osteoarthritis, unspecified site; Z79.01 Long term (current) use of anticoagulants; Z79.899 Other long term (current) drug therapy; Z86.718 Personal history of other venous thrombosis and embolism
CPT/HCPCS: 36415; 80053; 83690; 84484; 85025; 99283

== ENCOUNTER 2022-11-04 05:59 | Day surgery (SDC) | payer MEDICARE ==
[2022-11-04] MEDS ORDERED: Sodium Chloride 0.9% 10 ML Syringe FLUSH ONE (07:00)
[2022-11-04 07:47] VITALS: BP 149/86; PULSE 57
== END 2022-11-04 08:09 | disposition home or self-care (01) ==
LOC: JP.SDS 05:59
PROVIDERS: ATTEND Ophthalmology
DX: H26.9 Unspecified cataract (principal); I26.99 Other pulmonary embolism without acute cor pulmonale; E66.9 Obesity, unspecified; Z68.33 Body mass index [BMI] 33.0-33.9, adult

== ENCOUNTER → 2022-11-18 | Day surgery (SDC) | payer MEDICARE ==
[~2022-11-18] MED LIST: Sodium Chloride 0.9% 10 ML Syringe FLUSH PRN
[2022-11-18 08:03] VITALS: BP 156/78; PULSE 78
== END | disposition home or self-care (01) ==
LOC: JP.SDS 06:32
PROVIDERS: ATTEND Ophthalmology
DX: H26.9 Unspecified cataract (principal); Z79.899 Other long term (current) drug therapy
CPT/HCPCS: 66984; J3490